=== PATIENT | female | born 1995 | race Caucasian/White ===

== ENCOUNTER 2017-06-20 21:34 | Emergency (ER) | payer SELFPAY | END 2017-06-20 23:44 | disposition home or self-care (01) | LOC: ERS 21:34 | DX: O99.612 Diseases of the digestive system complicating pregnancy, second trimester (principal); K04.7 Periapical abscess without sinus; Z3A.18 18 weeks gestation of pregnancy | CPT/HCPCS: 99282 ==

== ENCOUNTER 2017-07-27 20:18 | Inpatient (IN) | payer MEDICAID, SELFPAY ==
[2017-07-27 21:21] VITALS: BMI 33.6
[2017-07-27] MEDS ORDERED: Ondansetron HCl/PF 4 MG/2 ML Vial IVP PRN (21:44)
[2017-07-27] MEDS ORDERED: Ibuprofen 800 MG TAB PO PRN (21:44)
[2017-07-27] MEDS ORDERED: Misoprostol 200 MCG TAB PR PRN (21:44)
[2017-07-27] MEDS ORDERED: HYDROcodone/Acetaminophen 5/325 mg Tablet PO PRN ×2 (21:44)
[2017-07-27] MEDS ORDERED: LR / Pitocin 40 units/1000 ml 1,000 ML IV PRN (21:44)
[2017-07-27] MEDS ORDERED: Lidocaine 1% (PF) 30 ML VIAL SC PRN (21:44)
[2017-07-27] MEDS ORDERED: Lactated Ringer's 1,000 ML IV SCH (22:00)
[2017-07-27 22:35] LABS: Hemoglobin 12.2 g/dL (12.0-16.0); Mean Corpuscular HGB CONC 35.1 g/dL (32.0-36.0); Mean Corpuscular Hemoglobin 31.7 pg (27.0-31.0); Mean Corpuscular Volume 90.2 fl (81.0-99.0); Mean Platelet Volume 7.4 fL (7.4-10.4); Platelet Count 269 thou/uL (130-400); RBC Distribution Width 11.9 % (11.5-14.5); Red Blood Cell (RBC) Count 3.86 mill/uL (4.20-5.40); White Blood Cell (WBC) Count 5.8 thou/uL (4.8-10.8)
[2017-07-27] MEDS: Lactated Ringer's 1,000 ML IV SCH (22:35)
[2017-07-27] MEDS: Acetaminophen 1,000 MG in Premix Bag 1 BAG IVPB SCH (22:40)
[2017-07-27 23:00] LABS: ALT (SGPT) 14 U/L (8-55); AST (SGOT) 16 U/L (5-34); Albumin 4.3 g/dL (3.5-5.0); Alkaline Phosphatase 75 U/L (40-150); Anion Gap 16 mmol/L (10-20); BUN (Urea Nitrogen) 7 mg/dL (7.0-18.7); Bilirubin, Total 0.5 mg/dL (0.2-1.2); Calc. Creatinine Clearance 219 mL/min (70-130); Calcium 9.9 mg/dL (7.8-10.44); Carbon Dioxide 21 mmol/L (22-29); Chloride 107 mmol/L (98-107); Estimated GFR-MDRD Greater than 90; Globulin 3.1 g/dL (2.4-3.5); Glucose 90 mg/dL (70-105); Potassium 3.6 mmol/L (3.5-5.1); Protein, Total 7.4 g/dL (6.0-8.3); Sodium 140 mmol/L (136-145)
[2017-07-27] MEDS: cefOXitin 2 GM, Syringe 1 ML in Sterile Water 10 ML SLOW IVP SCH (23:00)
[2017-07-27] MEDS: Misoprostol 100 MCG TAB VAG SCH (23:20)
[2017-07-27] MEDS ORDERED: cefOXitin 2 GM in Sodium Chloride 0.9% 100 ML IVPB SCH (23:59)
[2017-07-28] MEDS: Lactated Ringer's 1,000 ML IV SCH ×2 (02:20→15:30)
[2017-07-28] MEDS: Misoprostol 100 MCG TAB VAG SCH ×5 (02:50→15:06)
[2017-07-28] MEDS: Acetaminophen 1,000 MG in Premix Bag 1 BAG IVPB SCH ×4 (05:00→23:54)
[2017-07-28] MEDS: cefOXitin 2 GM, Syringe 1 ML in Sterile Water 10 ML SLOW IVP SCH ×4 (05:00→23:10)
--- NOTE | 2017-07-28 05:50 | HP ---
DATE OF ENCOUNTER: 07/27/2017 PRIMARY ELEMENTARY TEACHER: . HISTORY OF PRESENT ILLNESS: The patient is a 22-year-old female with an intrauterine of about 23 weeks diagnosed yesterday with an intrauterine demise. The patient has presented today for an induction of labor. The patient reports several weeks ago, she had a tooth abscess for which she was on antibiotics, but denies any other illness. She denies vaginal bleeding. She denies uterine contractions. She denies pain or fever. PAST MEDICAL HISTORY: Negative. PAST SURGICAL HISTORY: Negative. OBSTETRIC HISTORY: She has had 1 term delivery about 4 years ago. ALLERGIES: No known drug allergies. MEDICATIONS: vitamins. SOCIAL HISTORY: Denies drug, alcohol, or tobacco use. OBSTETRICAL LABORATORY DATA: Blood type A positive, antibody screen negative, rubella immune, HIV nonreactive, RPR nonreactive, hepatitis B surface antigen nonreactive. Formal ultrasound demonstrates intrauterine at 17 weeks and 4 days by size with no evidence of life as there is an absent heartbeat. PHYSICAL EXAMINATION: VITAL SIGNS: Blood pressure 136/67, heart rate of 89, respiratory rate of 18, temperature 100.3. GENERAL: She appears to be in no acute distress. She is alert and oriented, cooperative and pleasant to interact with. HEENT: Head, normocephalic, atraumatic. LUNGS: Clear to auscultation bilaterally. HEART: Regular rate and rhythm. ABDOMEN: Soft, nontender to palpation. EXTREMITIES: Nontender, nonedematous. LABORATORY AND DIAGNOSTIC DATA: Blood type confirmed here A positive with a negative antibody screen. CMP with normal findings, sodium 140, potassium 3.6, chloride 107, bicarbonate 21, BUN 7, creatinine 6.62, glucose of 90, calcium of 9.9, AST of 16, ALT of 14, white count 5.8, hemoglobin 12.2, hematocrit 34.8, platelets 269,000. Bedside ultrasound also confirms an IUFD in vertex presentation. ASSESSMENT AND PLAN: The patient is a 22-year-old female with a newly diagnosed intrauterine demise at 23 weeks by her last menstrual period and 17 weeks and 4 days by size. We discussed the process with Ms. Plata, we will induce her labor with misoprostol 400 mcg every 3 hours per vagina until delivery. Since admission and prior to placement of misoprostol, patient was noted to have an elevated temperature of 100.9. Given the likely prolonged nature of this demise and elevated temperature, patient has been started on cefoxitin, doxycycline, and IV Tylenol. Her white count at this point is within normal limits and anticipate a vaginal delivery. MTDD
--- NOTE | 2017-07-28 08:19 | PDOC.EVN ---
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 Pt on cytotec 400mcg PV Q4 but remains fingertip. demise at 17 weeks but 23 weeks by dates. On Cefoxitin and Doxy. No CS HX. Will continue prostagladin induction. Has had 3 dosages. CX at last check was fingertip. Baby cephalic per sono by Carlos previously.
--- NOTE | 2017-07-28 09:14 | PDOC.LDPN ---
Labor & Delivery Progress Note - Objective Vital signs reviewed and normal: yes General: NAD Uterine fundus: non tender - Assessment (1) in second trimester Code(s): Z33.2 - ENCOUNTER FOR ELECTIVE TERMINATION OF Current Visit : Yes Status: Acute Plan: continue plan of care, other (Patient seen at 0910. Information reviewed with her and the patient's family members. 17 week loss reviewed. Sono with possible cystic hygroma. Chance that this is genetically linked was discussed with her. Also discussed possible desire for genetics studies after delivery (microarray analysis). Cytotec 400mcg in use. ABX in use. EGA by dates is 17 weeks. If no response to med induction at 24 hours, we will rest her and retry after 12-24 hour period of uterine rest.)
--- NOTE | 2017-07-28 17:15 | PDOC.LDPN ---
Labor & Delivery Progress Note - Objective Vital signs reviewed and normal: yes General: NAD Uterine fundus: non tender - Assessment (1) in second trimester Code(s): Z33.2 - ENCOUNTER FOR ELECTIVE TERMINATION OF Current Visit : Yes Status: Acute Plan: continue plan of care, other (This patient has had 6 doses of 400mcg cytotec with no evidence of labor. No VB, no ROM. Vitals stable. As we are s/p 6 doses with no result, we will stop this induction and retry at 0500 07/29/17 with 800mcg cytotec load. We will watch her in L&D for now. As I do not want to inadverently rupture her amniotic sac, I have elected not to place laminaria ( she is only fingertip on last exam). We will rest her uterus for now and start at higher dose at 0500.)
[2017-07-28 20:14] VITALS: TEMP 99.6
[2017-07-29] MEDS: Lactated Ringer's 1,000 ML IV SCH ×3 (01:40→20:09)
[2017-07-29] MEDS: cefOXitin 2 GM, Syringe 1 ML in Sterile Water 10 ML SLOW IVP SCH ×4 (04:47→23:22)
[2017-07-29] MEDS ORDERED: Misoprostol 200 MCG TAB VAG SCH ×2 (05:00→09:00)
--- NOTE | 2017-07-29 07:07 | PDOC.LDPN ---
Labor & Delivery Progress Note - Objective Vital signs reviewed and normal: yes General: NAD Uterine fundus: non tender SVE: Deferred Procedures: Cytotec 800mcg placed by RN earlier this AM - Assessment (1) in second trimester Code(s): Z33.2 - ENCOUNTER FOR ELECTIVE TERMINATION OF Current Visit : Yes Status: Acute Plan: continue plan of care (Cytotec 800mcy placed earlier. This is her second round of medications after a 12 hour rest period last night. Cefoxitin and doxy in use per Dr Gonzalez ordered on admission. continue plan of induction with prostaglandins.)
[2017-07-29] MEDS: Misoprostol 200 MCG TAB VAG SCH ×5 (09:27→21:12)
--- NOTE | 2017-07-29 19:57 | PRG ---
DATE OF SERVICE: 07/29/2017. TIME OF SERVICE: 1845 hours. SUBJECTIVE: The patient is resting comfortably. She is receiving her fourth out of five doses of Cy totec with this round for DIU between 17 and 21 weeks' gestation. OBJECTIVE: VITAL SIGNS: The patient's temperature is 100.5. Her pulse is 89, blood pressure 110/72. ABDOMEN: Soft and nontender without rebound or guarding. GENITOURINARY: Vulva without lesions. Vagina, slight bloody discharge. PELVIC: Her cervix is fingertip and long, but seems to be opened throughout its length. The fetus c ould be felt low in the uterine segment. EXTREMITIES: Without clubbing, cyanosis, or edema. IMPRESSION: in utero, on second round of Cytotec, now with modest cervical change. PLAN: We will continue the Cytotec and administer fifth dose later this evening and stop and let the patient rest overnight. Suspect that temperature is related to high doses of Cytotec and is not ind icative of infection. We will plan to let the patient rest overnight. Discussed with the patient ou r options. Considering that her cervix is now open enough to place a Cook cervical dilatation balloo n, we would anticipate obtaining an epidural for analgesia tomorrow a.m. and placing a Cook balloon, likely with less than 80/80 mL in the balloon because of early gestational age. If that is placed, w e will plan on leaving in situ for 12 hours, removing, and then restarting Cytotec. We will administ er antibiotics if indication of systemic or local infection other than mild temperature elevation pre sents.
[2017-07-30] MEDS ORDERED: Fentanyl 4 mcg/Marc 0.1% Cadd 100 ML ONE (00:49)
[2017-07-30] MEDS ORDERED: Fentanyl 100 MCG/2 ML VIAL ONE (01:27)
[2017-07-30] MEDS ORDERED: Misoprostol 100 MCG TAB ONE (02:05)
[2017-07-30] MEDS ORDERED: Misoprostol 200 MCG TAB PO SCH (02:08)
--- NOTE | 2017-07-30 02:10 | PDOC.OPDEL ---
OB Operative/Delivery Note Delivery Dr/Surgeon: Andrew Pre-Delivery Diagnosis: other Procedure/Post Delivery Dx: spontaneous vaginal delivery Weeks gestation: 20 Anesthesia: epidural - Additional Findings/Plan Placenta delivered: other Repaired Obstetrical Laceration: none Estimated blood loss: 150 Compilations/Other Findings: 0159 delivery of DIU. placenta still in situ. complete note with wt and description to follow
[2017-07-30] MEDS ORDERED: Acetaminophen 500 MG TAB PO PRN (02:40)
--- NOTE | 2017-07-30 09:03 | OP ---
DATE OF SERVICE: 07/30/2017 PREOPERATIVE DIAGNOSIS: Approximately 20-week intrauterine demise. POSTOPERATIVE DIAGNOSIS: Approximately 20-week intrauterine demise. PROCEDURE PERFORMED: Spontaneous vaginal delivery. SURGEON: Charlie Morales M.D. ANESTHESIA: Epidural. ESTIMATED BLOOD LOSS: 600 mL. COMPLICATIONS: None. OPERATIVE FINDINGS: 1. Stillborn male fetus 184 grams. No gross anomalies to home. 2. Intact placenta. No gross anomaly sent for pathologic analysis. 3. Mild possible chorioamnionitis versus elevated temperature, secondary to Cytotec with no evidence of sepsis. DISPOSITION: Routine recovery in labor and delivery. DESCRIPTION OF PROCEDURE: The patient went through two cycles of Cytotec per vagina for induction of labor for an IUFD from [facility]. She received her epidural approximately at 0107 and de livered spontaneously at 0159. No gross cord abnormalities were noted. The fetus was noted to be ma le. No evidence of a cystic hygroma was noted on exam. The gross exam was unremarkable. The fetus weight is 184 grams. The patient was then administered 800 of Cytotec p.o. She had an episode of em esis approximately 30 minutes after administration. She delivered the placenta spontaneously intact at 0355. Further examination of the umbilical cord revealed no gross anomalies and the placenta appe ared within normal limits. Total EBL was 600 mL. No laceration was noted. Antibiotics were stopped post-delivery and the patient was admitted into routine post-delivery care. Anticipate discharge ho sc later on 07/30/2017.
[2017-07-30] MEDS ORDERED: Lidocaine 2% PF 10 ML AMP (For Epidural Use) ONE (11:11)
[2017-07-30] MEDS: cefOXitin 2 GM, Syringe 1 ML in Sterile Water 10 ML SLOW IVP SCH (12:40)
[2017-07-30] MEDS ORDERED: Ondansetron HCl/PF 4 MG/2 ML Vial IVP PRN (12:42)
[2017-07-30] MEDS ORDERED: Adacel (T-DAP) 0.5 ML VIAL IM ONE (12:42)
[2017-07-30] MEDS ORDERED: Promethazine HCl 25 MG/ML VIAL IM PRN (12:42)
[2017-07-30] MEDS ORDERED: diphenhydrAMINE 25 MG CAP PO PRN (12:42)
[2017-07-30] MEDS ORDERED: LR / Pitocin 40 units/1000 ml 1,000 ML IV SCH (12:42)
[2017-07-30] MEDS ORDERED: Milk Of Magnesia 30 ML UDCUP PO PRN (12:42)
[2017-07-30] MEDS ORDERED: Acetaminophen/Codeine 30-300mg Tablet PO PRN ×2 (12:42)
[2017-07-30] MEDS ORDERED: Bisacodyl 10 MG SUPP PR PRN (12:42)
[2017-07-30] MEDS ORDERED: Prenatal Vitamin 1 TAB PO SCH (13:00)
[2017-07-30] MEDS ORDERED: Ibuprofen 800 MG TAB PO SCH (13:00)
--- NOTE | 2017-07-30 14:09 | PDOC.EVN ---
Event Note - Event Note Event Note: Patient s/p delivery of second trimester demise with delivery of placenta at approximately 0330 this am. As she is stable and without clinical evidence of infection, we are planning on discharge at 12 hours post delivery (approx 1600) . . Abdomen nontender, controlled bleeding. Patient does desire to be released home today as she has had 2 trials of medical inductions and a prolonged course of attempted induction. Stable.
--- NOTE | 2017-07-30 14:13 | PDOC.EVN ---
Event Note - Event Note Event Note: DISCHARGE NOTE Procedures/Diagnoses: Labor induction Vaginal delivery of second trimester ( demise) EGA under 20 weeks This patient was admitted by Dr Gonzalez with a known demise at approx 17 weeks (23 weeks by dates). She underwent two separate trials of cytotec induction of labor with the second attempt resulting in vaginal delivery of the demised baby by Dr Morales. Delivery was at approx 0230 with delivery of the placenta at approx 0330 on 07/30/17. Although she was started on antibiotics emperically on admit, subsequent temps may have been secondary to high dose PG administration as there was no clinical evidence of infection. Planned discharge was for 07/30/17 PM after at least 12 hours of observation.
[2017-07-30] MEDS ORDERED: Ferrous Sulfate 325 MG TAB PO SCH (17:00)
[2017-07-30] MEDS ORDERED: Docusate Calcium (SURFAK) 240 MG CAP PO SCH (21:00)
[2017-07-31] MEDS ORDERED: Prenatal Vitamin 1 TAB PO SCH (09:00)
== END 2017-07-30 15:10 | disposition home or self-care (01) | DRG 779 ==
LOC: L&D/OP 20:18 → L&D 20:25 → UNDOADMIN 20:25 → L&D 22:32
PROVIDERS: ADMIT Obstetrics & Gynecology; ATTEND Obstetrics & Gynecology
PROC: 10E0XZZ Delivery of Products of Conception, External Approach (ICD-10-PCS; principal; 2017-07-30)
PROC: 3E033VJ Introduction of Other Hormone into Peripheral Vein, Percutaneous Approach (ICD-10-PCS; 2017-07-30)
DX: O02.1 Missed abortion (principal); R50.2 Drug induced fever; O9A.22 Injury, poisoning and certain other consequences of external causes complicating childbirth; Z37.1 Single stillbirth; Z3A.23 23 weeks gestation of pregnancy; T45.525A Adverse effect of antithrombotic drugs, initial encounter
CPT/HCPCS: 80053; 85027; 86850; 86900; 86901; 88305; A4216; J0131; J0595; J0694; J2001; J3010; J7050